=== PATIENT | female | born 1955 | race Caucasian/White ===

== ENCOUNTER 2023-09-04 15:20 | Emergency (ER) | payer MEDICARE, SELFPAY ==
[2023-09-04 16:03] VITALS: BP 161/83; PULSE 76; RESP 14; TEMP 36.8; O2SAT 97; BMI 26.2
--- NOTE | 2023-09-04 16:08 | ED.GENADULT ---
HPI - General Adult General Chief complaint: General Medical Stated complaint: Bee sting t-7 with increase facial swelling Time Seen by Provider: 09/04/23 20:49 Source: patient, RN notes reviewed and old records reviewed Mode of arrival: ambulatory History of Present Illness HPI narrative: 67-year-old female with a past medical history of hypertension on HCTZ presenting to the ED complaining of increasing right-sided facial/periorbital pain, swelling, & right eye blurry vision. Admits symptoms initially started 8 days ago when she was cleaning the yard and sustained suspected insect bite to face. Symptoms started with pain followed by redness and swelling > periorbital region. Patient was evaluated at urgent care yesterday prescribed Keflex, Benadryl, and Zofran without relief. States noted rash yesterday/today. Reports mild right eye tearing. Denies vision loss, fever/chills, CP/SOB, numbness/tingling, weakness, pain with EOMs. Onset (ago): day(s) Related Data Previous Rx's Medication Instructions Recorded prednisone 20 mg tablet 40 mg (2 x 20 mg) PO DAILY 5 days 09/04/23 #10 tabs valacyclovir 1 gram tablet 1,000 mg PO TID 7 days #21 tabs 09/04/23 Allergies Allergy/AdvReac Type Severity Reaction Status Date / Time bee pollen [BEE STINGS] Allergy Severe ANAPHYLAXIS Verified 09/04/23 21:42 Review of Systems Review of Systems: Constitutional: No Fever, No Chills, No Fatigue, No Malaise ENT/Mouth: No Ear Pain, No Nasal Congestion, No sore throat, No Rhinorrhea, No Swallowing Difficulty Eyes: +Eye Pain, +Swelling,+ Redness, No Foreign Body, No Discharge, +Vision Changes Cardiovascular: No Chest Pain, No SOB, No Edema Respiratory: No Cough, No Sputum, No Dyspnea Gastrointestinal: No Nausea, No Vomiting, No Diarrhea, No Constipation, No Abdominal pain Musculoskeletal: No joint pain, No Myalgias, No Joint Swelling Skin: No Skin Lesions, No rash Neuro: No Weakness, No Headache Yes all other systems are reviewed and are negative Constitutional: Constitutional: Reports as per HPI Eyes: Eyes: Reports photophobia (right) [facility] Past Medical History Attestation statement: The following information was validated with the patient. Source: old records reviewed Social History Social History Alcohol intake: current Alcohol intake frequency: holidays/special occasions only Smoked in Last 30 Days: No Use of substances other than those prescribed or required for medical reasons: No Advance Directives: No Advance Directives Information Provided: No Physical Exam ED Vital Signs: Vital Signs - 24 hr 09/04/23 16:03 09/04/23 20:50 09/04/23 22:25 Temperature 98.3 F 99.1 F Pulse Rate 76 77 81 Respiratory Rate 14 16 16 Blood Pressure 161/83 H 171/97 H 173/87 H Pulse Oximetry 97 95 98 Oxygen Delivery Method Room Air Room Air Room Air 09/04/23 22:48 Temperature 98.6 F Pulse Rate 72 Respiratory Rate 11 L Blood Pressure 159/77 H Pulse Oximetry 95 Oxygen Delivery Method Room Air BMI result Body Mass Index 26.2 Const General: cooperative, no acute distress, alert and awake Orientation/consciousness: patient oriented x3 Limitations: no limitations HENMT Other: + right periorbital region with swelling/puffiness, erythema, and vesicular rash extending to scalp consistent with shingles. Not crossing midline. No crusting. Head: No Liz's sign and No raccoon eyes Ears: hearing grossly normal bilaterally and external ears normal General nose exam: Normal external nose present Mouth: Normal oral and palatal mucosa present and no drooling Throat: Yes posterior oropharynx normal and Yes uvula midline Eyes Other: + right conjunctival injection. EOMs intact without entrapment and without pain. Fluorescein staining use without uptake, no dendritic lesions General: appearance normal, both eyes and all related structures Corneas: corneas normal and fluorescein used Pupils: Equal, round and reactive pupils present EOM: EOMs intact bilaterally and no movement deficit Direct Ophthalmoscopy: normal light reflex and photophobia (right) Neck Neck: Yes normal visual inspection, Yes no meningeal signs and No anterior neck swelling Resp Effort & Inspection: normal respiratory effort and no respiratory distress Cardio Rate: regular rate Skin Wounds: no wounds Neuro General: patient oriented x3, tone normal and no meningeal signs Cranial nerves: Yes CN's II-XII intact bilaterally and Yes Equal, round and reactive pupils present Gait exam (Neuro): Normal gait present Extrem General: Yes normal to inspection Course Course Course Narrative: RME- 67 year old female presents for evaluation of right facial pain and swelling. Symptoms started 8 days ago. She noticed it were worsening on Thursday, 4 days ago. She went to urgent care yesterday and was prescribed Cephalexin and Benadryl. Patient reports that her symptoms were worse today. Denies any blurry vision, but she has mared right facial edema and erythema in the periorbital region. Plan for labs including blood cultures. -2226--no leukocytosis. Patient with hyponatremia to 127 > admits to history of hyponatremia, is currently on HCTZ, suspect diuretic is the cause of hyponatremia. Will give gentle IVF and repeat -2312--hyponatremia improved to 131 after 1L IVF. Potassium low at 3.2 > 60 mEq p.o. repletion ordered Serum and urine osmolalities/studies consistent with hyponatremia secondary to diuretic use. Discussed with patient to stop diuretic and have close follow-up with PCP. Patient would like to be discharged home at this time. Again stressed importance of Ophthalmology follow-up and compliance of medications >Results discussed with patient including worrisome signs and symptoms and strict return precautions, and when to return to the emergency department. They verbalized understanding and feel safe for discharge at this time. Medications Administered Discontinued Medications Generic Name Dose Route Start Last Admin Trade Name Freq PRN Reason Stop Dose Admin Fluorescein Sodium 1 strip 09/04/23 20:58 09/04/23 21:12 Fluorescein Sodium Strip EYE-RIGHT 09/04/23 20:59 1 strip ONCE ONE Administration Sodium Chloride 500 mls @ 999 mls/hr 09/04/23 21:15 09/04/23 22:20 Ns IV 09/04/23 21:45 Infused .Q31M MILO Infusion Sodium Chloride 500 mls @ 999 mls/hr 09/04/23 22:30 09/04/23 23:20 Ns IV 09/04/23 23:00 Infused .Q31M MILO Infusion Potassium Chloride 60 meq 09/04/23 23:11 09/04/23 23:59 Potassium Chloride Packet 20 Meq Packet PO 09/04/23 23:12 Not Given ONCE ONE Prednisone 40 mg 09/04/23 21:31 09/04/23 21:46 Prednisone 20 Mg Tablet PO 09/04/23 21:32 40 mg ONCE ONE Administration Tetracaine HCl 1 drop 09/04/23 20:58 09/04/23 21:12 Tetracaine Hcl/Pf 0.5% Oph Radha 4 Ml Drops EYE-RIGHT 09/04/23 20:59 1 drop ONCE ONE Administration Valacyclovir HCl 1,000 mg 09/04/23 21:19 09/04/23 21:46 Valacyclovir Hcl 1,000 Mg Tablet PO 09/04/23 21:20 1,000 mg ONCE ONE Administration Medical Decision Making Medical Decision Making [facility] Narrative: 67-year-old female with a past medical history of hypertension on HCTZ presenting to the ED complaining of increasing right-sided facial/periorbital pain, swelling, & right eye blurry vision. On exam vital signs stable, NAD, nontoxic appearing, physical exam as noted above consistent with Herpes Zoster Ophthalmicus. Possible preseptal cellulitis although of lower suspicion with known viral etiology. Low suspicion for orbital cellulitis, retro-orbital abscess, Bhumi Ritchie syndrome, tick/insect bite Case d/w ED Attending Dr. Bartholomew who also evaluated patient and is in agreement with plan Plan: Labs, lactic/blood cultures ordered in triage, p.o. Valtrex, p.o. prednisone, patient could continue previously prescribed Keflex. Discussed/stressed importance of follow-up with Ophthalmology Please refer to course for remaining clinical decision making, interpretation of labs/imaging results, and discussions with consultants and/or family members. Differential Diagnosis Differential Diagnoses: The differential diagnosis associated with the presentation includes As above Admission/Observation Consideration of admission/observation: Escalation of care including admission/observation considered Lab Data [facility] Lab Attestation statement: I reviewed the patient's lab results. 09/04/23 17:13 09/04/23 22:44 Labs: Lab Results 09/04/23 09/04/23 09/04/23 Range/Units 17:13 22:29 22:44 WBC 8.5 (4.8-10.8) X10*3/uL RBC 4.53 (4.20-5.50) X10*6/uL Hgb 13.2 (12.0-16.0) g/dl Hct 38.2 (37.0-47.0) % MCV 84.3 (80.0-98.0) fL MCH 29.1 (27.0-33.0) pg MCHC 34.6 (31.0-35.0) g/dl RDW 11.9 (11.0-16.0) % Plt Count 378 (160-400) X10*3/uL MPV 9.7 (9.4-12.3) fL Immature Gran % (Auto) 0.2 (0.0-0.4) % Neut % (Auto) 58.8 (45-73) % Lymph % (Auto) 25.2 (20-40) % Atkinson % (Auto) 15.0 H (2-11) % Eos % (Auto) 0.2 (0-4) % Baso % (Auto) 0.6 (0-2) % Lymph # (Auto) 2.1 (1.2-4.9) X10*3/uL Atkinson # (Auto) 1.3 H (0.1-1.2) X10*3/uL Eos # (Auto) 0.0 (0.0-0.4) X10*3/uL Baso # (Auto) 0.1 (0.0-0.2) X10*3/uL Abs Immat Gran (auto) 0.02 (0.00-0.03) X10*3/uL Absolute Neuts (auto) 5.0 (2.0-8.3) x10*3/uL Absolute Nucleated RBC 0.000 (0.0-0.012) X10*3/uL Nucleated RBC % (auto) 0.0 (0.0-0.2) /100WBC Smear Tech's Comments VERIFIED Sodium 127 L 131 L (135-145) mmol/L Potassium 3.4 3.2 L (3.3-5.1) mmol/L Chloride 93 L 96 (96-108) mmol/L Carbon Dioxide 23 25 (22-29) mmol/L Anion Gap 14 13 (12-20) BUN 10 8 L (9-16) mg/dL Creatinine 0.63 0.60 (0.5-1.4) mg/dL Estim Creat Clear Calc 70.6 74.1 Estimated GFR > 60 > 60 Random Glucose 120 H 130 H (60-115) mg/dL Osmolality 266 L (281-305) mosm/kg Lactic Acid 1.0 (0.5-2.0) mmol/L Calcium 10.6 H 8.9 D (8.4-10.2) mg/dL Total Bilirubin 0.5 (0.0-1.0) mg/dL AST 15 (5-31) U/L ALT 17 (0-31) U/L Alkaline Phosphatase 64 (39-117) U/L Total Protein 8.1 H (6.5-8.0) g/dL Albumin 4.4 (3.5-5.0) g/dL Lipase 11 (8-78) U/L Urine Color Yellow Urine Appearance Clear Urine pH 6.5 (5.0-9.0) Ur Specific [place] 1.010 (1.005-1.025) Urine Protein Negative (Neg-Trace) mg/dL Urine Glucose (UA) 100 H (Negative) mg/dL Urine Ketones Negative (Negative) mg/dL Urine Blood Negative (Negative) Urine Nitrite Negative (Negative) Ur Leukocyte Esterase Negative (Negative) Urine Osmolality 281 L (373-1093) mosm/kg Ur Random Sodium 27.0 mmol/L Ur Random Potassium 18.1 mmol/L Ur Random Chloride 35.0 mmol/L Radiology Impression Discussion of test interpretation with radiology: I have reviewed the radiologist's reading. External Record Review External record reviewed: Inpatient record, Office record, Outpatient record, Prior outpatient labs, Prior outpatient radiology, Primary care record and Outside ED record Tests considered The following testing was considered but not selected: As above Discharge Plan Discharge Clinical Impression: Herpes zoster ophthalmicus of right eye Patient Disposition: Home, Self-Care Instructions: Shingles (ED), Hyponatremia (ED) Additional Instructions: You have shingles Acyclovir is an antiviral medication please take as prescribed. In addition prednisone will help with decreasing symptomatology Continue taking previously prescribed antibiotic Her sodium was very low today we suspect from her diuretic, please stop taking your thiazide, and have close follow-up with her PCP, call on Thursday for an appointment If you develop any vision loss, increasing blurry vision, fever/chills, increasing rash or pain return to the emergency department immediately Prescriptions: New valacyclovir 1 gram tablet 1,000 mg PO TID 7 Days Qty: 21 0RF prednisone 20 mg tablet 40 mg PO DAILY 5 Days Qty: 10 0RF Referrals: Klaus Greenfield [Physician] - 2 days Kitty Phillips DO [Primary Care Provider] - 2 days Interventions: ED Discharge Assessment Last Done: 09/04/23 23:45 Discharge Date/Time: 09/04/23 23:45
[2023-09-04 17:28] LABS: Basophils Absolute Auto 0.1 X10*3/uL (0.0-0.2); Basophils Percent Auto 0.6 % (0-2); Eosinophils Percent Auto 0.2 % (0-4); Hematocrit 38.2 % (37.0-47.0); Hemoglobin 13.2 g/dl (12.0-16.0); Imm Gran Abs Auto 0.02 X10*3/uL (0.00-0.03); Imm Gran Pct Auto 0.2 % (0.0-0.4); Lymphocytes Absolute Auto 2.1 X10*3/uL (1.2-4.9); Lymphocytes Percent Auto 25.2 % (20-40); MANUAL DIFF FLAG SCAN; Mean Corpuscular HGB Conc 34.6 g/dl (31.0-35.0); Mean Corpuscular Hemoglobin 29.1 pg (27.0-33.0); Mean Corpuscular Volume 84.3 fL (80.0-98.0); Mean Platelet Volume 9.7 fL (9.4-12.3); Monocytes Absolute Auto 1.3 X10*3/uL (0.1-1.2); Neutrophils Percent Auto 58.8 % (45-73); Platelet Count 378 X10*3/uL (160-400); Red Blood Count 4.53 X10*6/uL (4.20-5.50); Red Cell Distribution Width 11.9 % (11.0-16.0); SCAN SMEAR FLAG 1; White Blood Count 8.5 X10*3/uL (4.8-10.8)
[2023-09-04 17:45] LABS: Alanine Aminotransferase 17 U/L (0-31); Albumin Level 4.4 g/dL (3.5-5.0); Alkaline Phosphatase 64 U/L (39-117); Anion Gap 14 (12-20); Aspartate Amino Transferase 15 U/L (5-31); Bilirubin Total 0.5 mg/dL (0.0-1.0); Blood Urea Nitrogen 10 mg/dL (9-16); Calcium 10.6 mg/dL (8.4-10.2); Carbon Dioxide 23 mmol/L (22-29); Chloride 93 mmol/L (96-108); Creatinine Clr Calc Pharmacy 70.6; Estimated Glomerular Filt Rate > 60; Glucose Random 120 mg/dL (60-115); Lipase 11 U/L (8-78); Potassium 3.4 mmol/L (3.3-5.1); Sodium 127 mmol/L (135-145); Total Protein 8.1 g/dL (6.5-8.0)
[2023-09-04 17:51] LABS: SLIDE REVIEW VERIFIED
[2023-09-04 20:50] VITALS: BP 171/97; PULSE 77; RESP 16; TEMP 37.3; O2SAT 95
[2023-09-04] MEDS: Fluorescein Sodium STRIP 1 STRIP EYE-RIGHT (21:12)
[2023-09-04] MEDS: Tetracaine HCl/PF 0.5% Oph Sol 4 ML DROPS 1 DROP EYE-RIGHT (21:12)
[2023-09-04] MEDS: 0.9 % Sodium Chloride 500 ML 999 ML IV ×2 (21:46→22:45)
[2023-09-04] MEDS: valACYclovir HCL 1,000 MG TABLET 1000 MG PO (21:46)
[2023-09-04] MEDS: predniSONE 20 MG TABLET 40 MG PO (21:46)
[2023-09-04 22:25] VITALS: BP 173/87; PULSE 81; RESP 16; O2SAT 98
[2023-09-04 22:39] LABS: Appearance Urine Clear; Color Urine Yellow; Glucose Urine UA 100 mg/dL (Negative); Leukocyte Esterase Urine Negative (Negative); Nitrite Urine Negative (Negative); PH 6.5 (5.0-9.0); Urine Blood Negative (Negative); Urine Ketones Negative (Negative); Urine Protein Negative (Neg-Trace)
[2023-09-04 22:42] LABS: Potassium Urine Random 18.1 mmol/L
[2023-09-04 22:48] VITALS: BP 159/77; PULSE 72; RESP 11; TEMP 37; O2SAT 95
[2023-09-04 23:05] LABS: Anion Gap 13 (12-20); Blood Urea Nitrogen 8 mg/dL (9-16); Calcium 8.9 mg/dL (8.4-10.2); Carbon Dioxide 25 mmol/L (22-29); Chloride 96 mmol/L (96-108); Creatinine Clr Calc Pharmacy 74.1; Estimated Glomerular Filt Rate > 60; Glucose Random 130 mg/dL (60-115); Potassium 3.2 mmol/L (3.3-5.1); Sodium 131 mmol/L (135-145)
[2023-09-04 23:08] LABS: Osmolality Urine 281 mosm/kg (373-1093)
[2023-09-04 23:08] LABS: Osmolality, Serum 266 mosm/kg (281-305)
== END 2023-09-04 23:45 | disposition home or self-care (01) ==
PROVIDERS: Physician Assistant; Emergency Provider Emergency Medicine Emergency Medical Services; PCP Internal Medicine
DX: B02.30 Zoster ocular disease, unspecified (principal)
CPT/HCPCS: 36415; 80048; 80053; 81003; 82436; 83605; 83690; 83930; 83935; 84133; 84300; 85025; 87040; 96360; 99284